=== PATIENT | male | born 1940 | race Caucasian/White ===

== ENCOUNTER 2023-09-27 08:54 | Emergency (ER) | payer OTHER, SELFPAY ==
[2023-09-27] VITALS (17 sets, daily range): BP systolic 143–202; BP diastolic 70–93; PULSE 50–58; RESP 8–24; TEMP 36.9; O2SAT 94–99; BMI 25.7
--- NOTE | 2023-09-27 09:05 | DI.RAD.S_ITS ---
PROCEDURE: XR CHEST 1V INDICATIONS: chest pain TECHNIQUE: One view of the chest was acquired. COMPARISON: None. FINDINGS: Surgical changes and devices: Remote CABG. Lungs and pleura: Lungs are clear. No pleural effusions or pneumothorax. Mediastinum: Mediastinal contours appear normal. Heart size is normal. Bones and chest wall: No suspicious bony lesions. Overlying soft tissues appear unremarkable. IMPRESSION: No evidence acute pulmonary process. Dictated by: Jayesh Govea M.D. on 09/27/2023 at 10:14 Approved by: Jayesh Govea M.D. on 09/27/2023 at 10:16
--- NOTE | 2023-09-27 09:08 | ED_ITS ---
HPI - Chest Pain General Chief Complaint: Chest Pain Stated Complaint: chest pain/ HX LT Cath Time Seen by Provider: 09/27/23 09:05 History of Present Illness HPI narrative: Patient 83-year-old male history of previous CABG today after heart catheterization yesterday. He is followed by Dr. Merchant at [facility]. He is had angina ongoing for the last 1 year he had heart catheterizations yesterday. Today he felt some squeezing in his chest. No stents were placed. It sounds as though he had a blockage in a previous CABG but was discharged. This morning he was getting back into the recliner when he felt squeezing the left side of his chest. He reports it lasted for 30 seconds maybe it lasted longer I think the most intense part was when he was going to sit down. He denies any shortness of breath diaphoresis nausea or vomiting. He is no palpitations. Pain is slightly reproducible with palpation in 1 particular spot. Although he reports that most of his symptoms have resided Patient reports that his daughter brought him some sort of nitric oxide beat supplement. He took himself off some of his blood pressure medication he reports no difference although he is quite hypertensive here in the ED. Review of Systems Review of Systems ROS Unobtainable: All systems reviewed & are unremarkable except as noted in HPI and below Patient History Social History Smoking Status: Never smoker Smoking Status: Never smoker Exam Initial Vital Signs Initial Vital Signs: Vital Signs Temperature 98.4 F 09/27/23 09:02 Pulse Rate 53 09/27/23 09:02 Respiratory Rate 16 09/27/23 09:02 Blood Pressure 201/93 09/27/23 09:02 Pulse Oximetry 98 09/27/23 09:02 Oxygen Delivery Method Room Air 09/27/23 09:02 GENERAL: Alert 83-year-old male and in no acute distress. HEENT: Head atraumatic,EOMI, pupils reactive, face symmetric, moist mucous membranes CARDIOVASCULAR: Regular rate and rhythm without murmurs, rubs or gallops. Pain reproducible left side of chest in 1 particular area RESPIRATORY: Breath sounds equal bilaterally, no wheezes rales or rhonchi. ABDOMEN: Soft, nontender. Normoactive bowel sounds all 4 quadrants. No guarding or rebound. EXTREMITIES: Normal range of motion, no clubbing or edema. Neurovascularly intact NEUROLOGICAL: Alert and oriented x4.Normal gait and speech. SKIN: Warm, dry, no laceration, no petechiae, no rashes or lesions. Course Orders Ordered: ED Orders 09/27/23 10:14 EKG-12 Lead Stat 09/27/23 11:25 Troponin I Stat Discontinued Medications Aspirin (Aspirin 81 Mg Chew Tab) 324 mg PO NOW ONE Stop: 09/27/23 09:06 Last Admin: 09/27/23 09:10 Dose: 324 mg Documented By: AMV Vital Signs Vital signs: Vital Signs - 8 hr 09/27/23 10:45 09/27/23 11:00 09/27/23 11:08 Pulse Rate 53 L 55 L 54 L Respiratory Rate 19 24 21 Blood Pressure Pulse Oximetry 95 96 99 09/27/23 11:08 09/27/23 11:15 09/27/23 11:30 Pulse Rate 51 L 51 L Respiratory Rate 17 11 L Blood Pressure 200/79 H Pulse Oximetry 96 95 09/27/23 11:30 09/27/23 11:45 09/27/23 12:00 Pulse Rate 51 L 51 L Respiratory Rate 19 8 L Blood Pressure 143/73 H Pulse Oximetry 95 94 09/27/23 12:00 Pulse Rate Respiratory Rate Blood Pressure 151/70 H Pulse Oximetry MDM - Chest Pain Lab Data 09/27/23 09:05 09/27/23 09:05 Labs: Lab Results 09/27/23 09/27/23 Range/Units 09:05 11:25 WBC 5.9 (4.5-11.0) X10^3/uL RBC 4.75 (4.5-5.9) X10^6/uL Hgb 14.9 (13.5-17.5) g/dL Hct 43.3 (41-53) % MCV 91.1 (80-100) fL MCH 31.4 (26-34) PG MCHC 34.4 (30-36) % RDW 13.9 (11.6-14.8) % Plt Count 192 (150-400) X10^3/uL Neut % (Auto) 50.4 (50-75) % Lymph % (Auto) 37.5 (25-40) % Wilkinson % (Auto) 7.4 (3-14) % Eos % (Auto) 4.1 H (2-4) % Baso % (Auto) 0.6 (0-2) % Neut # (Auto) 3000 (3871-9349) /uL Lymph # (Auto) 2200 (3042-9597) /uL Wilkinson # (Auto) 400 (0-900) /uL Eos # (Auto) 200 (0-450) /uL Baso # (Auto) 0 (0-100) /uL PT 13.4 H (10.1-12.7) SECONDS INR 1.2 (0.9-1.3) APTT 33 (26-36) SECONDS Sodium 137 (137-145) mmol/L Potassium 4.4 (3.4-5.1) mmol/L Chloride 103 (98-107) mmol/L Carbon Dioxide 26 (22-32) mmol/L BUN 17 (9-20) mg/dL Creatinine 0.83 (0.66-1.25) mg/dL Estimated GFR > 60 (>60) mL/min BUN/Creatinine Ratio 20.5 (6-22) Glucose 108 (80-110) mg/dL Calcium 9.8 (8.4-10.2) mg/dL Total Bilirubin 0.6 (0.2-1.3) mg/dL AST 30 (17-59) IU/L ALT 20 (<50) IU/L Alkaline Phosphatase 45 (38-126) U/L Total Creatine Kinase 133 (55-170) U/L Troponin I < 0.012 < 0.012 (0.01-0.034) ng/mL Total Protein 7.5 (6.3-8.2) g/dL Albumin 4.5 (3.5-5.0) g/dL Globulin 3.0 (1.7-4.1) g/dL Albumin/Globulin Ratio 1.5 (1.0-2.8) Lipase 63 (23-300) U/L Imaging Data Chest x-ray: Radiologist's Impression: PROCEDURE: XR CHEST 1V INDICATIONS: chest pain TECHNIQUE: One view of the chest was acquired. COMPARISON: None. FINDINGS: Surgical changes and devices: Remote CABG. Lungs and pleura: Lungs are clear. No pleural effusions or pneumothorax. Mediastinum: Mediastinal contours appear normal. Heart size is normal. Bones and chest wall: No suspicious bony lesions. Overlying soft tissues appear unremarkable. IMPRESSION: No evidence acute pulmonary process. Dictated by: Jayesh Govea M.D. on 09/27/2023 at 10:14 ECG Data Interpretation: EKG 1. Sinus rhythm rate 61 NH interval 206 QRS 98 QTC 422 Q-waves noted inferiorly in 3 and AVF with some ST elevation no ST depression no 1st EKG 2. Sinus rhythm rate 57 NH interval 224 QRS 1 6 QTC 327 persistent Q-waves no change in ST elevations no ST depression EKG 3. Sinus bradycardia rate 49 no changes from prior MDM Narrative Medical decision making narrative: Patient 83-year-old male with known coronary artery disease heart catheterization from yesterday received he does have significant nikolski disease but no cardiac stents were placed. Unclear what previous EKGs look like with Q- waves this is presumed to be chronic. Patient has ongoing angina. It was reported that he is not compliant with Hypertension or hyperlipidemia medications. Bedside ultrasound done by myself does not show any obvious pericardial effusion Blood work has been reviewed troponin is negative no electrolyte abnormality or LISA 10:50 Dr. Vargas on-call cardiology updated patient's symptoms test results reviewed heart catheterization. At this time recommend blood pressure control and hyperlipidemia control medical management only. No need for further interventions or transfer at this time. Patient has 2- troponins pain is mostly subsided at this time no EKG changes. Discussed with patient and to maximize medical therapy which included blood pressure medication. 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 Blood work today is reassuring I spoke with Cardiology today they will see you in clinic *Continue to take medications as directed *Follow up with your primary care provider in 2-3 days or call [phone] *Return to ER if you should have increasing chest pain shortness of breath nausea or vomiting or any new, worsening or concerning symptoms Referrals: Tory Merchant DO [Primary Care Provider] - Stand Alone Forms: Patient Portal/API
[2023-09-27] MEDS: ASPIRIN 81 MG CHEW TAB 324 MG PO (09:10)
[2023-09-27 09:15] LABS: Add Manual Diff / Slide Review NO; Basophils Absolute Auto 0 /uL (0-100); Basophils Percent Auto 0.6 % (0-2); Eosinophils Absolute Auto 200 /uL (0-450); Eosinophils Percent Auto 4.1 % (2-4); Hematocrit 43.3 % (41-53); Hemoglobin 14.9 g/dL (13.5-17.5); Lymphocytes Absolute Auto 2200 /uL (1100-4500); Lymphocytes Percent Auto 37.5 % (25-40); Mean Corpuscular HGB Conc 34.4 % (30-36); Mean Corpuscular Hemoglobin 31.4 PG (26-34); Mean Corpuscular Volume 91.1 fL (80-100); Monocytes Absolute Auto 400 /uL (0-900); Monocytes Percent Auto 7.4 % (3-14); Neutrophils Absolute Auto 3000 /uL (1500-7000); Neutrophils Percent Auto 50.4 % (50-75); Platelet Count 192 X10^3/uL (150-400); Red Blood Cell Count 4.75 X10^6/uL (4.5-5.9); Red Cell Distribution Width 13.9 % (11.6-14.8); White Blood Cell Count 5.9 X10^3/uL (4.5-11.0)
[2023-09-27 09:16] LABS: INR 1.2 (0.9-1.3); Prothrombin Time 13.4 SECONDS (10.1-12.7)
[2023-09-27 09:22] LABS: Alanine Aminotransferase 20 IU/L (<50); Albumin 4.5 g/dL (3.5-5.0); Albumin Globulin Ratio 1.5 (1.0-2.8); Alkaline Phosphatase 45 U/L (38-126); Aspartate Aminotransferase 30 IU/L (17-59); BUN Creatinine Ratio 20.5 (6-22); Bilirubin Total 0.6 mg/dL (0.2-1.3); Blood Urea Nitrogen 17 mg/dL (9-20); Calcium 9.8 mg/dL (8.4-10.2); Carbon Dioxide 26 mmol/L (22-32); Chloride 103 mmol/L (98-107); Creatine Kinase 133 U/L (55-170); Estimated Glomerular Filt Rate > 60 mL/min (>60); Glucose 108 mg/dL (80-110); HEMOLYSIS < 15 (0-50); Lipase 63 U/L (23-300); Potassium 4.4 mmol/L (3.4-5.1); Sodium 137 mmol/L (137-145); Total Protein 7.5 g/dL (6.3-8.2)
[2023-09-27 09:26] LABS: PTT Partial Thromboplastin Tim 33 SECONDS (26-36)
--- NOTE | 2023-09-27 09:30 | PC.NURSE ---
Pt states that he had cardiac cath done yesterday at [facility]. No stent was placed. Today pt woke up and felt a squeezing/gripping pain in his chest that he rates as a 8/10. reports that pain has been intermittent since but feels pain on inspiration at the top of his chest. denies any other sx. denies fever. 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 however, he stopped doing that because his daughter, a pharmacist, suggested taking a supplement called nitric acid for his htn instead. pt discontinued taking a daily baby aspirin as well. dr layne aware. no new orders at this time.
[2023-09-27 09:32] LABS: Troponin I < 0.012 ng/mL (0.01-0.034)
--- NOTE | 2023-09-27 11:52 | PC.NURSE ---
pt ambulates independently with steady gait.
[2023-09-27 11:55] LABS: Troponin I < 0.012 ng/mL (0.01-0.034)
== END 2023-09-27 12:17 | disposition home or self-care (01) ==
PROVIDERS: Emergency Provider Emergency Medicine; PCP Internal Medicine Cardiovascular Disease
DX: R07.89 Other chest pain (principal)
CPT/HCPCS: 36415; 71045; 80053; 82550; 83690; 84484; 85025; 85610; 85730; 93005; 99284

== ENCOUNTER → 2025-03-11 09:00 | Outpatient (CLI) | payer MEDICARE, OTHER, SELFPAY ==
--- NOTE | 2025-03-11 09:02 | DI.ECHO.S_ITS ---
[facility] +---------+ Hospital : : [address] : : [place] : : [id number] : : Phone: [phone] Echocardiogram Report + + :Name: CELENA GOZNALEZ Study Date: 03/11/2025 Height: 74 in : :[facility] ReadingLocation: Weight: 200 lb : : Gender: Male BSA: 2.2 m2 : :: 1940 Age: 85 yrs BP: 176/97 mmHg: :Reason For Study: CORONARY ARTERY DISEASE : :Ordering Physician: ROHAN, : :KEIKO Performed By: Hayden Hagen : :Referring: KEIKO MADRIGAL : + + Interpretation Summary The ejection fraction is estimated to be 50-55%. Diastolic function could not be accurately assessed due to contradictory data. The left atrium is mildly dilated. The right ventricle is normal in size and function. The right atrium is mildly dilated. There is mild mitral regurgitation. There is mild tricuspid regurgitation. The right ventricular systolic pressure is estimated to be at least 33 mmHg based on an estimated right atrial pressure of 3 mm Hg. The ascending aorta is mildly enlarged, 3.7 cm. Compared to the prior study 11/01/2023, no significant change. Procedure: A two-dimensional transthoracic echocardiogram with color flow and Doppler was performed. The study quality was technically good. Comparison is made with the echocardiogram of 11/01/2023. The patient was in normal sinus rhythm during the exam. Left Ventricle: The left ventricle is normal in size. There is normal left ventricular wall thickness. There is no ventricular septal defect visualized. The ejection fraction is estimated to be 50-55%. There are no focal wall motion abnormalities. Diastolic function could not be accurately assessed due to contradictory data. Right Ventricle: The right ventricle is normal in size and function. Atria: The left atrium is mildly dilated. The right atrium is mildly dilated. There is no Doppler evidence for an atrial septal defect. Mitral Valve: The mitral valve leaflets appear normal. There is no evidence of stenosis, fluttering, or prolapse. There is mild mitral regurgitation. Aortic Valve: The aortic valve is trileaflet. The aortic valve opens well. The aortic valve is slightly calcified. There is no aortic valve stenosis. No aortic regurgitation is present. Tricuspid Valve: The tricuspid valve leaflets are thin and pliable. There is mild tricuspid regurgitation. The right ventricular systolic pressure is estimated to be at least 33 mmHg based on an estimated right atrial pressure of 3 mm Hg. Pulmonic Valve: The pulmonic valve leaflets are thin and pliable; valve motion is normal. There is trace pulmonic regurgitation. Great Vessels: The aortic root is normal size. The ascending aorta is mildly enlarged. The pulmonary artery is normal size. The IVC is of normal diameter and collapses greater than 50% with a sniff. This suggests a low right atrial pressure of 3 mm Hg. Pericardium/ Pleura There is no pericardial effusion. There is no pleural effusion. MMode/2D Measurements & Calculations LVIDd: 5.4 cm LVOT diam: 2.3 cm LVIDs: 3.9 cm Ao root diam: 3.6 cm FS: 27.1 % asc Aorta Diam: 3.7 cm EPSS: 0.92 cm IVSd: 1.1 cm LVPWd: 1.1 cm LV davis. diameter/BSA (cm/m^2): 2.5 LV sys. diameter/BSA (cm/m^2): 1.8 LA A2 area: 25.4 cm2 RA long axis: 6.3 cm LA A4 area: 23.0 cm2 RA area: 22.8 cm2 LA length (vol): 6.0 cm RA vol: 70.5 ml LA vol: 82.9 ml RA : 32.4 ml/m2 LA vol index: 38.2 ml/m2 IVC diam: 2.0 cm RVD1 (basal): 3.8 cm RVD2 (mid): 2.9 cm TAPSE: 2.0 cm Doppler Measurements & Calculations Ao V2 max: 129.2 cm/sec MV E max dung: 61.1 cm/sec Ao V2 mean: 91.5 cm/sec MV A max dung: 79.1 cm/sec Ao max P.7 mmHg MV E/A: 0.77 Ao mean P.7 mmHg Med Peak E' Dung: 7.8 cm/sec Ao V2 VTI: 29.9 cm E/E' med: 7.9 Lat Peak E' Dung: 8.3 cm/sec E/E' lat: 7.3 E/e' average: 7.6 MV dec time: 0.27 sec TR max dung: 280.1 cm/sec TR max P.4 mmHg PA V2 max: 121.5 cm/sec PA V2 mean: 86.7 cm/sec PA mean P.3 mmHg PA pr(Accel): 27.6 mmHg Reading Physician:02:00 PM
== END ==
LOC: ECHO 09:01
PROVIDERS: Referring Provider Nurse Practitioner Acute Care; Visit Provider Nurse Practitioner Acute Care
DX: I08.1 Rheumatic disorders of both mitral and tricuspid valves (principal); I77.810 Thoracic aortic ectasia; I25.118 Atherosclerotic heart disease of native coronary artery with other forms of angina pectoris; R42 Dizziness and giddiness
CPT/HCPCS: 93306